=== PATIENT | male | born 1990 | race Caucasian/White ===

== ENCOUNTER 2023-08-13 14:48 | Inpatient (IN) | payer MEDICAID ==
[~2023-08-13] VITALS: Ht 180.3 cm; Wt 121.8 kg
[2023-08-13] MEDS ORDERED: ACETAMINOPHEN 500 MG TAB PO PRN (16:00)
[2023-08-13] MEDS ORDERED: NITROGLYCERIN 0.4 MG SL TAB SL PRN (16:00)
[2023-08-13] MEDS ORDERED: ONDANSETRON HCL 4 MG/2 ML VIAL IV PRN (16:00)
[2023-08-13] MEDS ORDERED: DEXTROSE (50%) 50ML SYRG IV PRN (16:00)
[2023-08-13] MEDS ORDERED: DOCUSATE SOD 100 MG CAP PO PRN (16:00)
[2023-08-13] MEDS: ACCU-CHEK COMFORT CURVE STRIP VI SCH (16:00)
[2023-08-13] MEDS ORDERED: IPRATROPIUM BROM 0.5 MG/2.5ML INH SOL NEB PRN (16:00)
[2023-08-13] MEDS ORDERED: MORPHINE SULFATE INJ 2 MG/ml SYRG IV PRN (16:00)
[2023-08-13] MEDS: InsuLIN REG 1unit/0.01ml Soln (100units/ml) SC SCH (16:00)
[2023-08-13] MEDS ORDERED: ALBUTEROL SULF 2.5 MG/0.5ML(0.5%) NEB SOLN NEB PRN (16:00)
[2023-08-13 18:48] VITALS: PULSE 103; RESP 18; O2SAT 95
[2023-08-13 18:53] VITALS: O2SAT 95
[2023-08-13] MEDS ORDERED: ATOR-507 PO (19:50)
[2023-08-13] MEDS ORDERED: LISI40TA16 PO (19:50)
[2023-08-13] MEDS ORDERED: FURO20TA3 PO (19:50)
[2023-08-13] MEDS ORDERED: CHLO25TA2 PO (19:50)
[2023-08-13] MEDS ORDERED: INSLISPI SC (19:50)
[2023-08-13] MEDS ORDERED: NIFE10CA58 PO (19:50)
[2023-08-13 20:00] VITALS: BP 148/81; PULSE 94; PULSE 96; RESP 18; TEMP 98.4; O2SAT 96
[2023-08-13 20:01] LABS: Basophils # (auto) 0.1 10 ^3/uL (0-0.2); Basophils % (auto) 0.7 % (0.0-2.0); Eosinophils # (auto) 0.2 10 ^3/uL (0-0.8); Eosinophils % (auto) 1.3 % (0.0-7.0); Hematocrit 23.8 % (41.0-53.0); Hemoglobin 7.9 g/dL (13.5-17.5); Lymphocytes # (auto) 1.4 10 ^3/uL (0.4-5.4); Lymphocytes % (auto) 11.9 % (10.0-50.0); Mean Corpuscular Hemoglobin 28.9 pg (28.0-32.0); Mean Corpuscular Hgb Conc. 33.1 g/dL (32.0-36.0); Mean Corpuscular Volume 87.3 fL (80.0-100.0); Neutrophils # (auto) 9.3 10 ^3/uL (1.6-8.6); Neutrophils % (auto) 78.1 % (37.0-80.0); Red Blood Cells 2.73 10^6/uL (4.5-5.90); White Blood Cell 11.8 10^3/uL (4.4-10.8)
[2023-08-13 20:19] LABS: Albumin 2.9 g/dL (3.2-4.8); Alkaline Phosphatase 93 U/L (46-116); Anion Gap 12 (5-15); Aspartate Aminotransferase 10 U/L (13-40); BUN/Creatinine Ratio 6.7 (10.0-20.0); Blood Urea Nitrogen 31 mg/dL (9-23); Calcium 7.9 mg/dL (8.5-10.1); Carbon Dioxide 19 mmol/L (20-30); Chloride 104 mmol/L (98-107); Glucose 263 mg/dL (74-106); Potassium 3.6 mmol/L (3.5-5.1); Sodium 135 mmol/L (136-145)
[2023-08-13 20:20] LABS: Alanine Aminotransferase < 9 U/L (7-40); Bilirubin, Total < 0.2 mg/dL (0.2-1.0); Creatine Kinase IFCC 38 U/L (46-171)
[2023-08-13] MEDS: LINEZOLID 600MG/300ML 300 ML IV SCH (20:44)
[2023-08-13] MEDS: MORPHINE SULFATE INJ 2 MG/ml SYRG IV PRN (20:52)
[2023-08-13 21:00] VITALS: BP 148/81; PULSE 96; RESP 18; TEMP 98.5; O2SAT 96
[2023-08-13 21:32] LABS: Erythrocyte Sedimentation Rate > 140 mm/hr (0-20)
[2023-08-13] MEDS: INSULIN LANTUS (GLARGINE) 1 /0.01ml (100units/ml) SC SCH (22:10)
[2023-08-14] VITALS (11 sets, daily range): BP systolic 149–174; BP diastolic 77–93; PULSE 94–103; RESP 18–26; TEMP 36.9; O2SAT 93–96
[2023-08-14] MEDS ORDERED: MELATONIN 5 MG TAB PO ONE (00:30)
[2023-08-14] MEDS: hydrALAZINE HCL 20 MG/ML VL IV PRN (01:16)
[2023-08-14] MEDS: ENOXAPARIN SOD 30 MG/0.3 ML SYRINGE SC SCH (10:36)
[2023-08-14] MEDS: LIDOCAINE 2% (LOCAL ANESTH.) PF 5ml SDV IJ ONE ×2 (11:14→11:15)
[2023-08-14] MEDS ORDERED: DEXTROSE (50%) 50ML SYRG IV PRN (12:00)
[2023-08-14] MEDS: HYDROmorphone HCL 2 MG/ML VL/or syr IV ONE (12:56)
[2023-08-14] MEDS: ACCU-CHEK COMFORT CURVE STRIP VI SCH (16:53)
[2023-08-14] MEDS: InsuLIN REG 1unit/0.01ml Soln (100units/ml) SC SCH ×2 (16:56→21:23)
[2023-08-14 18:04] LABS: Chloride 105 mmol/L (98-107); Potassium 3.4 mmol/L (3.5-5.1); Sodium 133 mmol/L (136-145)
[2023-08-14 18:05] LABS: Anion Gap 11 (5-15); Calcium 8.2 mg/dL (8.5-10.1); Carbon Dioxide 17 mmol/L (20-30)
[2023-08-14 18:10] LABS: Blood Urea Nitrogen 25 mg/dL (9-23)
[2023-08-14 18:15] LABS: Glucose 154 mg/dL (74-106)
[2023-08-15] VITALS (11 sets, daily range): BP systolic 127–181; BP diastolic 62–96; PULSE 77–103; RESP 16–20; TEMP 37.1; O2SAT 94–96
[2023-08-15 07:32] LABS: Basophils # (auto) 0.1 10 ^3/uL (0-0.2); Eosinophils # (auto) 0.3 10 ^3/uL (0-0.8); Monocytes # (auto) 0.9 10 ^3/uL (0-1.3)
[2023-08-15 07:34] LABS: Basophils % (auto) 0.5 % (0.0-2.0); Eosinophils % (auto) 2.5 % (0.0-7.0); Hemoglobin 8.3 g/dL (13.5-17.5); Lymphocytes # (auto) 1.7 10 ^3/uL (0.4-5.4); Lymphocytes % (auto) 15.3 % (10.0-50.0); Mean Corpuscular Hemoglobin 28.8 pg (28.0-32.0); Mean Corpuscular Hgb Conc. 33.4 g/dL (32.0-36.0); Mean Corpuscular Volume 86.4 fL (80.0-100.0); Monocytes % (auto) 7.9 % (0.0-12.0); Neutrophils # (auto) 8.1 10 ^3/uL (1.6-8.6); Neutrophils % (auto) 73.8 % (37.0-80.0); Red Cell Distribution Width 14.1 % (11.8-14.3)
[2023-08-15 07:47] LABS: Anion Gap 12 (5-15); Carbon Dioxide 19 mmol/L (20-30); Chloride 104 mmol/L (98-107); Potassium 3.2 mmol/L (3.5-5.1); Sodium 135 mmol/L (136-145)
[2023-08-15 07:48] LABS: Calcium 8.4 mg/dL (8.5-10.1)
[2023-08-15 07:53] LABS: BUN/Creatinine Ratio 6.6 (10.0-20.0); Blood Urea Nitrogen 34 mg/dL (9-23); Glucose 125 mg/dL (74-106)
[2023-08-15] MEDS ORDERED: NIFEdipine 10 MG CAP PO SCH (10:00)
[2023-08-15] MEDS: NIFEdipine ER 30 MG TAB PO ONE ×2 (14:07→14:16)
[2023-08-15] MEDS: SODIUM CHLORIDE 0.9% 1,000 ML IV SCH (15:51)
[2023-08-15] MEDS: hydrALAZINE HCL 20 MG/ML VL IV PRN (17:50)
[2023-08-16] VITALS (10 sets, daily range): BP systolic 134–169; BP diastolic 72–99; PULSE 83–101; RESP 16–18; TEMP 98–98.7; O2SAT 94–99
[2023-08-16 06:52] LABS: Basophils # (auto) 0.1 10 ^3/uL (0-0.2); Mean Corpuscular Volume 86.7 fL (80.0-100.0)
[2023-08-16 06:55] LABS: Basophils % (auto) 0.7 % (0.0-2.0); Eosinophils # (auto) 0.3 10 ^3/uL (0-0.8); Eosinophils % (auto) 2.5 % (0.0-7.0); Hematocrit 23.2 % (41.0-53.0); Lymphocytes # (auto) 1.7 10 ^3/uL (0.4-5.4); Lymphocytes % (auto) 14.1 % (10.0-50.0); Mean Corpuscular Hemoglobin 29.8 pg (28.0-32.0); Mean Corpuscular Hgb Conc. 34.4 g/dL (32.0-36.0); Neutrophils % (auto) 74.7 % (37.0-80.0); Red Blood Cells 2.68 10^6/uL (4.5-5.90)
[2023-08-16 06:59] LABS: Albumin 2.9 g/dL (3.2-4.8); Alkaline Phosphatase 74 U/L (46-116); Anion Gap 12 (5-15); Aspartate Aminotransferase < 8 U/L (13-40); BUN/Creatinine Ratio 6.8 (10.0-20.0); Blood Urea Nitrogen 34 mg/dL (9-23); Calcium 8.5 mg/dL (8.7-10.4); Carbon Dioxide 19 mmol/L (20-30); Chloride 104 mmol/L (98-107); Glucose 168 mg/dL (74-106); Potassium 3.5 mmol/L (3.5-5.1); Sodium 135 mmol/L (136-145)
[2023-08-16 07:00] LABS: Bilirubin, Total < 0.2 mg/dL (0.2-1.0); Total Protein 5.9 g/dL (5.7-8.2)
[2023-08-16 07:03] LABS: Alanine Aminotransferase < 9 U/L (7-40)
[2023-08-16] MEDS: NIFEdipine ER 30 MG TAB PO SCH (08:38)
[2023-08-16 08:42] LABS: Erythrocyte Sedimentation Rate 129 mm/hr (0-20)
[2023-08-16] MEDS: CARVEDILOL 12.5 MG TAB PO SCH (10:20)
[2023-08-17] VITALS (11 sets, daily range): BP systolic 136–168; BP diastolic 78–89; PULSE 79–91; RESP 14–18; TEMP 97.5–98.6; O2SAT 18–98
[2023-08-18] VITALS (10 sets, daily range): BP systolic 152–169; BP diastolic 83–94; PULSE 55–89; RESP 12–24; TEMP 97.3–98.2; O2SAT 94–98
[2023-08-18 06:57] LABS: Anion Gap 11 (5-15); Carbon Dioxide 18 mmol/L (20-30); Chloride 108 mmol/L (98-107); Potassium 3.6 mmol/L (3.5-5.1); Sodium 137 mmol/L (136-145)
[2023-08-18 06:58] LABS: Calcium 8.4 mg/dL (8.5-10.1)
[2023-08-18 07:03] LABS: BUN/Creatinine Ratio 6.3 (10.0-20.0); Basophils # (auto) 0.1 10 ^3/uL (0-0.2); Blood Urea Nitrogen 30 mg/dL (9-23); Eosinophils # (auto) 0.3 10 ^3/uL (0-0.8); Glucose 165 mg/dL (74-106); Lymphocytes # (auto) 2.1 10 ^3/uL (0.4-5.4); White Blood Cell 13.1 10^3/uL (4.4-10.8)
[2023-08-18 07:07] LABS: Basophils % (auto) 0.7 % (0.0-2.0); Eosinophils % (auto) 2.6 % (0.0-7.0); Hematocrit 23.8 % (41.0-53.0); Hemoglobin 7.9 g/dL (13.5-17.5); Lymphocytes % (auto) 15.8 % (10.0-50.0); Mean Corpuscular Hemoglobin 29.4 pg (28.0-32.0); Mean Corpuscular Hgb Conc. 33.4 g/dL (32.0-36.0); Monocytes # (auto) 0.7 10 ^3/uL (0-1.3); Monocytes % (auto) 5.5 % (0.0-12.0); Neutrophils # (auto) 9.9 10 ^3/uL (1.6-8.6); Neutrophils % (auto) 75.4 % (37.0-80.0); Nucleated Red Blood Cells % 0.1 %; Red Cell Distribution Width 13.9 % (11.8-14.3)
[2023-08-18 08:50] LABS: INR 1.1 (0.9-1.15); Partial Thromboplastin Time 26.5 SEC (24.5-34.5); Prothrombin Time 11.5 sec (9.3-11.8)
[2023-08-18] MEDS ORDERED: ACE3T PO (12:17)
[2023-08-18] MEDS ORDERED: LINE1TAB6 PO (12:34)
[2023-08-18] MEDS: HEPARIN SODIUM (PORCINE) 5000 UNITS/ML 1ML VIAL ONE (15:09)
[2023-08-18] MEDS: fentaNYL CITRATE 100 MCG/2 ML VL ONE (15:09)
[2023-08-18] MEDS: MIDAZOLAM HCL 2MG/2ML 2ml VIAL (1mg/ml) ONE (15:09)
[2023-08-18] MEDS: LIDOCAINE 2%HCL (LOCAL ANESTH.) INJ 20ML MDV ONE (15:09)
[2023-08-18] MEDS: ceFAZolin 1GM/50ML 0 ML IV ONE (15:33)
[2023-08-18] MEDS: HYDROcodone-ACET 5/325MG TAB PO PRN (17:14)
[2023-08-19] MEDS ORDERED: NIFEdipine ER 30 MG TAB PO SCH (10:00)
== END 2023-08-18 17:40 | disposition home health service (06) | DRG 721 ==
LOC: TELE-EAST 18:08
PROVIDERS: ADMIT Nurse Practitioner Acute Care; ATTEND Nurse Practitioner Acute Care
PROC: 0Y9B0ZZ Drainage of Left Lower Extremity, Open Approach (ICD-10-PCS; principal; 2023-08-14)
PROC: 0JH63XZ Insertion of Tunneled Vascular Access Device into Chest Subcutaneous Tissue and Fascia, Percutaneous Approach (ICD-10-PCS; 2023-08-18)
PROC: 02HV33Z Insertion of Infusion Device into Superior Vena Cava, Percutaneous Approach (ICD-10-PCS; 2023-08-18)
PROC: B518ZZA Fluoroscopy of Superior Vena Cava, Guidance (ICD-10-PCS; 2023-08-18)
PROC: B548ZZA Ultrasonography of Superior Vena Cava, Guidance (ICD-10-PCS; 2023-08-18)
DX: T80.212A Local infection due to central venous catheter, initial encounter (principal); A41.02 Sepsis due to Methicillin resistant Staphylococcus aureus; N17.9 Acute kidney failure, unspecified; L97.529 Non-pressure chronic ulcer of other part of left foot with unspecified severity; D63.1 Anemia in chronic kidney disease; E87.1 Hypo-osmolality and hyponatremia; E11.22 Type 2 diabetes mellitus with diabetic chronic kidney disease; E11.621 Type 2 diabetes mellitus with foot ulcer; S91.302A Unspecified open wound, left foot, initial encounter; L03.116 Cellulitis of left lower limb; N18.9 Chronic kidney disease, unspecified; Y83.8 Other surgical procedures as the cause of abnormal reaction of the patient, or of later complication, without mention of misadventure at the time of the procedure; X58.XXXA Exposure to other specified factors, initial encounter; E11.65 Type 2 diabetes mellitus with hyperglycemia; I12.9 Hypertensive chronic kidney disease with stage 1 through stage 4 chronic kidney disease, or unspecified chronic kidney disease; E66.9 Obesity, unspecified; L02.416 Cutaneous abscess of left lower limb; Z88.1 Allergy status to other antibiotic agents; Y93.89 Activity, other specified; Z88.8 Allergy status to other drugs, medicaments and biological substances; Y92.89 Other specified places as the place of occurrence of the external cause; Y99.8 Other external cause status; Z83.3 Family history of diabetes mellitus; Z68.37 Body mass index [BMI] 37.0-37.9, adult; Z79.4 Long term (current) use of insulin
CPT/HCPCS: 36415; 36558; 76000; 76937; 77001; 80048; 80053; 82550; 82962; 83036; 85025; 85610; 85652; 85730; 87040; 87070; 87077; 87081; 87186; 87205; 93005; 93306; 99152; C1894; G0378; J1815; J2001; J2250